=== PATIENT | male | born 1980 | race Caucasian/White ===

== ENCOUNTER → 2016-06-13 | Outpatient (CLI) | payer OTHER ==
--- NOTE | 2016-06-13 12:48 | EST ---
DATE OF SERVICE: 06/13/2016 AGE: 36Y SEX: M HT: 64" WT: 158 lbs. Protocol Gerry: X Other: Stage: IV Dur. of Exercise: 12 minutes *Heart Rate Blood Pressure *Rest: 77 Rest: 148/88 * *Max. Achieved: 175 Maximum BP: 198/82 85% PMHR: 157 100% PMHR: 185 *METS: 12.1 INDICATIONS: Chest pain. MEDICATIONS: Aspirin. Baseline EKG revealed a normal sinus rhythm without significant ST-T changes. Patient walked on a standard Gerry protocol for a total duration of 12 minutes, achieved a maximum heart rate of 175 beats per minute. Developed fatigue and shortness of breath, but did not have any angina or arrhythmia. EKG did not reveal any ST segment changes to reveal ischemia. By EKG criteria, this is a negative stress test with excellent exercise capacity. Patient did somewhat thinly built and there is some borderline voltage criteria for LVH. FINAL IMPRESSION: Excellent exercise capacity with a negative stress test.
--- NOTE | 2016-06-14 11:34 | ECHOF ---
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 This was a technically good study. LV size, wall thickness and systolic function are normal, with an EF greater than 55%. The right ventricle is normal in size. The left atrial size is normal. The right atrial size is normal. The aortic valve is trileaflet, and appears structurally normal. No aortic stenosis or regurgitation. There is no evidence of aortic regurgitation. There is trace mitral regurgitation. Trace tricuspid regurgitation present. There is no evidence of pulmonary hypertension. The right ventricular systolic pressure, as measured by Doppler, is 19.91mmHg. There is no pulmonic regurgitation present. The aortic root size is normal. There is no pericardial effusion. CONCLUSIONS -------- 1. LV size, wall thickness and systolic function are normal, with an EF greater than 55%. 2. The aortic valve is trileaflet, and appears structurally normal. No aortic stenosis or regurgitation. 3. There is trace mitral regurgitation. 4. Trace tricuspid regurgitation present. 5. There is no evidence of pulmonary hypertension. 6. The right ventricular systolic pressure, as measured by Doppler, is 19.91mmHg. ANESTHESIOLOGIST PHYSICIAN: Casandra Gamez RDCS
== END ==
LOC: RADNMMAIN 10:19
PROVIDERS: ATTEND Family Medicine
DX: I08.1 Rheumatic disorders of both mitral and tricuspid valves (principal); Z28.20 Immunization not carried out because of patient decision for unspecified reason; M54.6 Pain in thoracic spine
CPT/HCPCS: 93017; 93306

== ENCOUNTER → 2020-04-26 | Outpatient (CLI) | payer OTHER | END | disposition home or self-care (01) | LOC: LABWHC1 16:17 | PROVIDERS: ATTEND Family Medicine | DX: Z20.828 Contact with and (suspected) exposure to other viral communicable diseases (principal) | CPT/HCPCS: U0003; C9803 ==